=== PATIENT | female | born 1950 | race Caucasian/White ===

== ENCOUNTER 2020-11-08 08:52 | Day surgery (SDC) | payer MEDICARE, OTHER ==
[2020-11-06 15:49] VITALS: BMI 30.4
[~2020-11-08 08:52] MED LIST: ALPRAZolam 0.25 MG TAB PO PRN; ALPRAZolam 0.5 MG TAB PO PRN; ASPIRIN 325 MG TAB PO STA; ATORVASTATIN 80 MG TAB PO STA; HEPARIN SODIUM,PORCINE 10,000 UNIT in SODIUM CHLORIDE 0.9% 1,000 ML IRRIGATION PRN; HEPARIN SODIUM,PORCINE 2,500 UNIT in SODIUM CHLORIDE 0.9% 250 ML IRRIGATION PRN; NITROGLYCERIN SL TABS 0.4 MG TAB SUBLINGUAL PRN; SODIUM CHLORIDE 0.9% 1,000 ML in EMPTY BAG 1 BAG IV ONE
[2020-11-08 09:29] VITALS: RESP 18; TEMP 98.3
[2020-11-08 09:38] LABS: Basophils % (A) 1 %; Eosinophils # (A) 0.1 k/uL (0-0.7); Eosinophils % (A) 2 %; HCT 41.2 % (34.0-46.0); HGB 13.2 gm/dL (11.4-16.0); Lymphocytes # (A) 2.1 k/uL (1.0-4.8); Lymphocytes % (A) 35 %; MCH 30.7 pg (25.0-35.0); MCHC 32.1 g/dL (31.0-37.0); MCV 95.5 fL (80.0-100.0); Mean Platelet Volume 8.2; Monocytes # (A) 0.4 k/uL (0-1.0); Monocytes % (A) 6 %; Neutrophils # (A) 3.3 k/uL (1.3-7.7); Neutrophils % (A) 55 %; Platelet Count 277 k/uL (150-450); RBC 4.32 m/uL (3.80-5.40); WBC 5.9 k/uL (3.8-10.6)
[2020-11-08 10:09] LABS: Calcium 10.3 mg/dL (8.4-10.2); Potassium 4.3 mmol/L (3.5-5.1)
[2020-11-08] MEDS ORDERED: VERAPAMIL 2.5 MG/ML 2 ML AMP ONE (10:36)
[2020-11-08] MEDS ORDERED: LIDOCAINE 1% INJ 10MG/ML (20 ML MDV) ONE (10:36)
[2020-11-08] MEDS ORDERED: HEPARIN SODIUM 1,000 UN/ML (10ML VL) ONE (10:54)
[2020-11-08] MEDS ORDERED: MIDAZOLAM 2 MG/2 ML VIAL IVP ONE (11:15)
[2020-11-08] MEDS ORDERED: LIDOCAINE 1% INJ 10MG/ML (20 ML MDV) SQ ONE (11:17)
[2020-11-08] MEDS ORDERED: VERAPAMIL SYRINGE (5 MG/10 ML) INTRAARTER ONE (11:20)
[2020-11-08] MEDS ORDERED: NITROGLYCERIN SL TABS 0.4 MG TAB SUBLINGUAL ONE ×2 (11:25→11:26)
[2020-11-08] MEDS ORDERED: SODIUM CHLORIDE 0.9% 1,000 ML IV SCH (11:30)
[2020-11-08] MEDS ORDERED: IOPAMIDOL-370 100ML BTL INJ ONE (11:31)
[2020-11-08 15:42] VITALS: BP 149/67; PULSE 59
--- NOTE | 2020-11-08 17:18 | CC ---
CARDIAC CATHETERIZATION REPORT DATE OF SERVICE: 11/08/2020 PROCEDURE: Left heart catheterization and coronary angiography. PERFORMED BY: Sandip Sandoval. SEDATION: Moderate conscious sedation time was 16 minutes. Patient was administered Versed. Oxygen saturation, hemodynamics and EKG were monitored closely. CLINICAL INFORMATION: Mrs. Bonnie White is a 70-year-old lady with a history of hypertension, hyperlipidemia, and hypothyroidism. She recently had an abnormal stress test and has symptoms of chest tightness and pressure. Given this, she was advised cardiac cath after due discussion regarding risks, benefits, and options. PROCEDURE NOTE: Under local anesthesia and strict aseptic precautions, a 6-Slovak introducer was placed in the right radial artery. Using a J, R4, and JL 3.5 catheters I performed coronary angiography and the same right catheter was used to check LV pressure but LV gram was not performed. The sheath was taken out and TR band applied as per protocol. The saturation of the fingers of the right hand was about 94%. The patient tolerated procedure well without complication. CARDIAC CATHETERIZATION FINDINGS: Left ventricular end-diastolic pressure was about 14 mmHg without any gradient across aortic valve. CORONARY ANGIOGRAPHY FINDINGS: RIGHT CORONARY ARTERY: Technically dominant vessel, tortuous, distally bifurcates into PDA and PLV. There are minor irregularities but no significant disease. This is a dominant vessel. LEFT MAIN CORONARY ARTERY: Short patent vessel, free of significant disease. Bifurcates immediately into LAD and circumflex. LEFT ANTERIOR DESCENDING CORONARY ARTERY: Good caliber vessel extends along the anterior wall, gives off septal and diagonal branches runs all the way to the apex. The diagonal branch with about a 40% narrowing in the proximal portion. The diagonal is relatively smaller caliber and distribution. The stenosis is no more than 40% to 50%. The LAD, however, is free of significant disease has minor irregularities. It runs all the way to the apex supplying a sizable amount of myocardium. The LAD therefore is disease-free. Major diagonal of fair caliber of about 1.5 mm, has about a 40% to 50% narrowing in the proximal portion after comes off from the LAD. LEFT POSTERIOR CIRCUMFLEX: The left posterior circumflex coronary artery is a technically nondominant vessel gives off a large obtuse marginal and continues distally after that there is no significant disease. Obtuse marginal is of large caliber, divides into 2 further branches. There are only minor irregularities. No significant disease. LEFT VENTRICULOGRAM: Not performed. FINAL IMPRESSION: This patient has a right dominant system, relatively normal filling pressures and no gradient across aortic valve. The circumflex and RCA are free of significant disease. The LAD is also free of significant disease. There is a fair caliber diagonal branch that has a 50% stenosis in the proximal portion as it comes off from the left main. This is not a critical lesion. RECOMMENDATIONS: Findings were discussed with the patient and . I am recommending aggressive medical therapy with risk factor modification. We will keep the LDL cholesterol under 70. Continue with optimal BP control. The diagonal lesion does not appear significant and the amount of myocardium supplied by it is relatively small, caliber vessel is about 1.75 mm. We will therefore pursue medical therapy with risk factor modification. Patient will be discharged later on today. MMODL / IJN: [id number] /
== END 2020-11-08 16:03 | disposition home or self-care (01) ==
LOC: CATHCVL 08:52
PROVIDERS: ATTEND Internal Medicine Interventional Cardiology
DX: R07.89 Other chest pain (principal); I10 Essential (primary) hypertension; E78.5 Hyperlipidemia, unspecified; E03.9 Hypothyroidism, unspecified
CPT/HCPCS: 93458; 80048; 85025; C1769; C1894; J2250; J2001; Q9967